=== PATIENT | female | born 1955 | race Hispanic/Latino ===

== ENCOUNTER → 2020-02-01 | Day surgery (SDC) | payer MEDICARE, OTHER ==
[2020-01-28 12:58] LABS: BLOOD UREA NITROGEN 13 mg/dL (7-26); BUN/CREATININE RATIO 17 (6-25); CALCIUM 9.8 mg/dL (8.4-10.2); CARBON DIOXIDE 25 mmol/L (22-29); CHLORIDE 105 mmol/L (98-107); CREATININE, SERUM 0.75 mg/dL (0.57-1.11); EST GLOMERULAR FILTRATION RATE > 60 ML/MIN (60-); GLUCOSE 152 mg/dL (74-118); SODIUM 141 mmol/L (136-145)
[~2020-02-01] MED LIST: ALENDRONATE SOD70 MG PO; CEFAZOLIN SOD 1 GM/NS 50ML 100 ML IV ONE; DEXAMETHASONE SOD PHOS INJ 4 MG/ML VIAL ONE; EPINEPHRINE 1 MG/ML 30ML VIAL ONE; FENTANYL CITRATE/PF 100MCG/2 ML INJ ONE; FUROSEMIDE40 MG PO; GABAPENTIN300 MG PO; GLIPIZIDE ER5 MG PO; HYDROMORPHONE 1MG/1ML INJ ONE; LIDOCAINE 2%/ EPINEPHRINE 20ML MDV ONE; LIDOCAINE HCL 2% LOCAL INJ 5 ML SDV VIAL INJ ONE; LIPITOR10 MG PO; LISINOPRIL2.5 MG PO; MEPERIDINE HCL INJ 25 MG/ML VIAL ONE; METFORMIN HCL500 MG PO; MIDAZOLAM HCL 2 MG/2 ML VIAL ONE; MOBIC7.5 MG PO; ONDANSETRON HCL INJ 2MG/ML 2ML 2 MG/ML VIAL ONE; PROPOFOL IV EMULSION 10 MG/ML 20 ML VIAL ONE; ROCURONIUM BROMIDE 10 MG/ML 5ML VIAL IV ONE; ROPIVACAINE 0.5% 5 MG/ML 30 ML SDV ONE; SEVOFLURANE INHAL SOLN 250 ML PEN BTL ONE; VIT D PO
--- NOTE | 2020-02-01 10:27 | NUR ---
SPIRITUAL CARE - Pre-Surgery Assessment: Military Analyst called to offer emotional support following of pt's pet. Intervention: Military Analyst provided pastoral presence, condolences, sympathetic listening, and prayer. Provided information on how to reach carbide die maker, if needed. Outcome: Pt expressed appreciation for visit. No need for follow up indicated at this time. PA[facility] Spiritual Care Department O: [phone]
[2020-02-01 16:10] VITALS: BP 132/71
--- NOTE | 2020-02-07 14:05 | Operative Report ---
DATE OF PROCEDURE: 02/01/2020 SURGEON: Sergo aSntizo MD PREOPERATIVE DIAGNOSES: Right shoulder rotator cuff tear, right shoulder AC joint arthritis. POSTOPERATIVE DIAGNOSES: Right shoulder rotator cuff tear, right shoulder AC joint arthritis, right biceps tendon partial tear, and right shoulder synovitis. OPERATIONS/PROCEDURES PERFORMED: The patient underwent a right shoulder examination under anesthesia, right shoulder arthroscopy, right shoulder arthroscopic debridement of synovitis, right shoulder arthroscopic biceps tenolysis, right shoulder arthroscopic rotator cuff reconstruction, right shoulder arthroscopic subacromial decompression and acromioplasty, and right shoulder arthroscopic distal clavicle resection. MANAGER MATERIALS MANAGEMENT: There was no respiratory therapy assistant. ANESTHESIA: General endotracheal intubation anesthesia plus a regional block. IV FLUIDS: Per the anesthesia record. BLOOD LOSS: Minimal. BRIEF DESCRIPTION OF THE PATIENT'S OPERATIVE PROCEDURE: Ms. Joy was taken to the operating room and placed in supine position on the operating table. At this time, examination of the right shoulder demonstrated full passive range of motion of shoulder joint. There was no evidence of instability. The patient's upper extremity was prepped and draped in standard surgical fashion. Standard posterior lateral and anterior port was created without difficulty. The scope was placed within the shoulder joint atraumatically. Examination of the glenohumeral articulation demonstrated no significant evidence of chondromalacia. There was synovitis in the shoulder joint. There were no loose bodies in the shoulder. The patient was found to have a rotator cuff tear. There was also tearing of the biceps tendon. A probe was placed in the shoulder joint and examination of biceps tendon demonstrated greater than 50% tearing of the tendon. The tendon tissue remained was in poor condition. A biting forceps was used to release the tendon from its attachment to the superior aspect of the labrum. A shaver was placed in the shoulder joint and synovitis was debrided. The rotator cuff injury was also debrided at this time. The insertion site for the rotator cuff was debrided to a bleeding bony bed. The shoulder was deflated with sterile normal saline. The scope was placed in subacromial space and a lateral portal was created with an outside-in technique. Significant bursal inflammation was encountered. A bursectomy was performed. The rotator cuff tear was easily identified. The insertion site was further debrided to a bleeding bony bed. An anterolateral portal was created without difficulty. A triple-loaded suture anchor was inserted into the greater tuberosity of the humerus and the suture arms from that anchor were then woven through the rotator cuff tissue. The rotator cuff tissue was then advanced and tied firmly over the greater tuberosity; this resulted in complete reapproximation of the injury. The coracoacromial ligament was resected. An aggressive acromioplasty was performed. The shoulder was then placed through range of motion and found to have no impingement. The anterior portal was then transferred into the subacromial space. The acromioclavicular joint was isolated. A 1 cm segment of the distal clavicle was then resected without difficulty. The shoulder was inflated with sterile normal saline. The portal sites were closed. Sterile dressings were applied. The patient was provided a shoulder immobilizer, awakened, and taken to postanesthesia care unit in stable condition. MD CATHY Velasquez/MADISYN /[id number]
== END | disposition home or self-care (01) ==
LOC: OR 09:29
PROVIDERS: ATTEND Specialist
DX: S46.091A Other injury of muscle(s) and tendon(s) of the rotator cuff of right shoulder, initial encounter (principal); M19.011 Primary osteoarthritis, right shoulder; S46.211A Strain of muscle, fascia and tendon of other parts of biceps, right arm, initial encounter; M65.811 Other synovitis and tenosynovitis, right shoulder; E11.9 Type 2 diabetes mellitus without complications; I10 Essential (primary) hypertension; W18.39XA Other fall on same level, initial encounter; Z88.6 Allergy status to analgesic agent; Z01.810 Encounter for preprocedural cardiovascular examination; Z01.812 Encounter for preprocedural laboratory examination; Z11.59 Encounter for screening for other viral diseases; Z79.84 Long term (current) use of oral hypoglycemic drugs
CPT/HCPCS: 29824; 29826; 29827; 36415; 80048; 93005; C1713; J0690; J1100; J1170; J2001 ×2; J2175; J2250; J2405; J2704; J2795; J3010; U0002

== ENCOUNTER → 2020-11-16 | Day surgery (SDC) | payer MEDICARE ==
[2020-11-14 08:35] LABS: HEMATOCRIT 37.5 % (34.2-44.1); HEMOGLOBIN 12.1 g/dL (12.0-16.0)
[2020-11-14 09:05] LABS: ANION GAP 14.3 mmol/L (8-16); CALCIUM 9.2 mg/dL (8.4-10.2); CREATININE, SERUM 0.69 mg/dL (0.57-1.11); POTASSIUM 4.3 mmol/L (3.5-5.1)
[~2020-11-16] MED LIST changes: +BALANCED SALT SOLN (OPTH) 15 ML BTL IO ONE; -CEFAZOLIN SOD 1 GM/NS 50ML 100 ML IV ONE; -DEXAMETHASONE SOD PHOS INJ 4 MG/ML VIAL ONE; -EPINEPHRINE 1 MG/ML 30ML VIAL ONE; -HYDROMORPHONE 1MG/1ML INJ ONE; +LIDOCAINE 2% /EPINEPHRINE 20 ML SDV INJ ONE; -LIDOCAINE 2%/ EPINEPHRINE 20ML MDV ONE; -LIDOCAINE HCL 2% LOCAL INJ 5 ML SDV VIAL INJ ONE; -MEPERIDINE HCL INJ 25 MG/ML VIAL ONE; +NEOMYCIN/POLYMYXIN/DEX (OPTH) 3.5 GM TUBE ONE; -ONDANSETRON HCL INJ 2MG/ML 2ML 2 MG/ML VIAL ONE; +POVIDONE IODINE 0.05% 0.05 % ML PO ONE; +POVIDONE IODINE 5% (OPTH) 30 ML BTL ONE; -ROCURONIUM BROMIDE 10 MG/ML 5ML VIAL IV ONE; -ROPIVACAINE 0.5% 5 MG/ML 30 ML SDV ONE; -SEVOFLURANE INHAL SOLN 250 ML PEN BTL ONE; +TOBRAMYCIN 0.3% OPTH OINT 3.5 GM TUBE ONE
[2020-11-16 12:45] VITALS: BP 132/76
== END | disposition home or self-care (01) ==
LOC: OR 07:17
PROVIDERS: ATTEND Ophthalmology
DX: H02.834 Dermatochalasis of left upper eyelid (principal); H02.831 Dermatochalasis of right upper eyelid; I10 Essential (primary) hypertension; E78.5 Hyperlipidemia, unspecified; E11.9 Type 2 diabetes mellitus without complications; K21.9 Gastro-esophageal reflux disease without esophagitis; R06.09 Other forms of dyspnea; Z88.6 Allergy status to analgesic agent; Z79.84 Long term (current) use of oral hypoglycemic drugs
CPT/HCPCS: 15822; 36415 ×2; 80048; 82948; 85014; 85018; 93005; J2001; J2250; J2704; J3010; U0002

== ENCOUNTER 2021-11-13 23:22 | Emergency (ER) | payer MEDICARE ==
[~2021-11-13] VITALS: Ht 157.5 cm; Wt 63.0 kg
[~2021-11-13 23:22] MED LIST changes: -BALANCED SALT SOLN (OPTH) 15 ML BTL IO ONE; -FENTANYL CITRATE/PF 100MCG/2 ML INJ ONE; -LIDOCAINE 2% /EPINEPHRINE 20 ML SDV INJ ONE; -MIDAZOLAM HCL 2 MG/2 ML VIAL ONE; -NEOMYCIN/POLYMYXIN/DEX (OPTH) 3.5 GM TUBE ONE; -POVIDONE IODINE 0.05% 0.05 % ML PO ONE; -POVIDONE IODINE 5% (OPTH) 30 ML BTL ONE; -PROPOFOL IV EMULSION 10 MG/ML 20 ML VIAL ONE; -TOBRAMYCIN 0.3% OPTH OINT 3.5 GM TUBE ONE
== END 2021-11-14 00:44 | disposition home or self-care (01) ==
LOC: ER 23:32
DX: R05.3 Chronic cough (principal); I10 Essential (primary) hypertension; E11.9 Type 2 diabetes mellitus without complications; E78.5 Hyperlipidemia, unspecified; K21.9 Gastro-esophageal reflux disease without esophagitis; R94.31 Abnormal electrocardiogram [ECG] [EKG]
CPT/HCPCS: 71046; 93005; 99283